=== PATIENT | female | born 1955 | race American Indian/Alaskan Native ===

== ENCOUNTER 2016-06-06 14:17 | Outpatient (CLI) | payer MEDICARE ==
--- NOTE | 2016-06-06 15:24 | Cat Scan Report ---
CT CHEST WITHOUT CONTRAST History: Pulmonary nodule Technique: Helical CT without IV contrast. Sagittal and coronal reformatted images. Findings: Compared to 05/03/15. Findings: Sternotomy wires are noted consistent with previous thoracic surgery, correlate with history. Heart size and pulmonary vascularity remain normal. The mediastinal vessels are unchanged. 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 No pericardial effusion. Calcified lymph nodes in the bilateral hilar chains and subcarinal chain are unchanged. Scattered calcified granulomas in both lungs are unchanged. No suspicious noncalcified pulmonary nodule. No underlying parenchymal lung disease. No pleural effusion or pneumothorax. The bony thorax is intact. Impression: Stable findings since 05/03/15. Findings consistent with chronic granulomatous disease. No suspicious pulmonary nodule.
== END 2016-06-06 14:18 | disposition home or self-care (01) ==
LOC: CT 14:17
PROVIDERS: ATTEND Specialist
DX: R91.1 Solitary pulmonary nodule (principal); J84.10 Pulmonary fibrosis, unspecified; Z98.890 Other specified postprocedural states
CPT/HCPCS: 71250

== ENCOUNTER 2016-06-12 16:27 | Emergency (ER) | payer MEDICARE ==
--- NOTE | 2016-06-12 17:39 | Emergency Department Report ---
Chief Complaint: Extremity Injury, Lower Stated Complaint: LEFT LEG PAIN Time Seen by Provider: 06/12/16 17:36 - HPI History of Present Illness: 61 y/o female complain of left leg pain and right foot pain .pt state that she was told she had lupus and rheumatoid arthritis.pt state she has have heavy feeling from head to waist .pt denies any chest pain at present . - ROS Review of Systems: per HPI - Exam Vital Signs: Vital Signs 06/12/16 17:13 Temperature 98.6 F Pulse Rate 106 H Respiratory 20 Rate Blood Pressure 136/72 O2 Sat by Pulse 99 Oximetry Physical Exam: GENERAL: The patient is well-developed and well-nourished. Patient is in NAD. HENT: Normocephalic. Atraumatic. Patient has moist mucous membranes. Throat: No erythema, swelling or exudates. EYES: Extraocular motions are intact, PERRL NECK: Supple. No meningitic signs are noted. There is no adenopathy noted. CHEST/LUNGS: Clear to auscultation bilaterally. No wheezing, rales or rhonchi noted. There is no respiratory distress noted. HEART/CARDIOVASCULAR: Regular rate and rhythm. Normal S1 S2. No murmurs, rubs , clicks, or gallops. ABDOMEN: Abdomen is soft, nontender.. Bowel sounds normoactive. There is no abdominal distention. Negative rebound tenderness. : Deferred. SKIN: There is no rash. There is no edema. There is no diaphoresis. NEURO: The patient is A&Ox3. The patient has no focal neurologic deficits. MUSCULOSKELETAL: There is no tenderness or deformity. There is no limitation range of motion. PSYCH: Pt has appropriate mood and affect. MSE screening note: Focused history and physical exam performed. Due to findings the following was ordered: ED Disposition for MSE Condition: Stable
[2016-06-12 18:41] LABS: Basophils % (Auto) 0.5 % (0.0-1.8); Hematocrit 40.7 % (30.3-42.9); Hemoglobin 12.9 gm/dl (10.1-14.3); Mean Corpuscular HGB Conc 32 % (30-34); Mean Corpuscular Hemoglobin 27 pg (28-32); Mean Corpuscular Volume 85 fl (79-97); Platelet Count 379 K/mm3 (140-440); Red Cell Distribution Width 15.3 % (13.2-15.2); White Blood Count 9.1 K/mm3 (4.5-11.0)
[2016-06-12 18:51] LABS: INR 1.09 (0.87-1.13)
[2016-06-12 18:52] LABS: Partial Thromboplastin Time 20.3 Sec. (24.2-36.6)
[2016-06-12 19:11] LABS: Anion Gap 22 mmol/L; BUN/Creatinine Ratio 15.71; Blood Urea Nitrogen 11 mg/dL (7-17); Calcium 9.9 mg/dL (8.4-10.2); Carbon Dioxide 28 mmol/L (22-30); Chloride 94.6 mmol/L (98-107); Glucose 143 mg/dL (65-100); Potassium 3.4 mmol/L (3.6-5.0); Sodium 141 mmol/L (137-145)
[2016-06-13 10:23] LABS: Alanine Aminotransferase 31 units/L (7-56); Albumin 3.7 g/dL (3.9-5); Albumin/Globulin Ratio 0.9 %; Alkaline Phosphatase 60 units/L (35-129); Bilirubin,Total 0.3 mg/dL (0.1-1.2); Total Protein 7.9 g/dL (6.3-8.2)
[2016-06-13 10:28] LABS: Bilirubin,Direct < 0.2 mg/dL (0-0.2)
--- NOTE | 2016-06-13 10:41 | Emergency Department Report ---
HPI - General Chief Complaint: Extremity Injury, Lower Time Seen by Provider: 06/13/16 09:33 - HPI HPI: Room 24 The patient is a 61-year-old female presenting with a chief complaint of "I think I have a blood clot in my left leg." The patient states last night she felt pain in her left lower extremity thought it was a blood clot. The patient states she felt a lump left leg but it has since resolved. The patient states yesterday she noticed swelling in the right foot. The patient also states "my body has so much inflammation" since February 2016. 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 - Surgical History Past Surgical History?: Yes Hx Open Heart Surgery: Yes - Family History Family history: no significant - Social History Smoking Status: Never Smoker Substance Use Type: None - Medications Home Medications: Home Medications Medication Instructions Recorded Confirmed Last Taken Type Aspirin [Baby Aspirin] 81 mg PO QDAY 03/26/13 06/13/16 06/12/16 History Latanoprost [Xalatan 0.005% eye 1 drop OU QPM 03/26/13 06/13/16 06/12/16 History drops] Simvastatin [Zocor] 20 mg PO QHS 03/26/13 06/13/16 06/12/16 History clonazePAM [Clonazepam] 2 mg PO BID PRN 03/26/13 06/13/16 06/12/16 History FLUoxetine HCL [FLUoxetine] 40 mg PO DAILY 11/14/14 06/13/16 06/12/16 History amLODIPine [Norvasc] 10 mg PO DAILY 11/14/14 06/13/16 06/12/16 History Ascorbic Acid [Vitamin C] 500 mg PO QDAY 06/13/16 06/13/16 06/12/16 History Brimonidine 0.15% [Alphagan P 1 drops OP Q12H 06/13/16 06/13/16 06/12/16 History 0.15%] Cyanocobalamin (Vitamin B-12) 2,500 mcg SL DAILY 06/13/16 06/13/16 06/12/16 History [Vitamin B-12] Hydrochlorothiazide [HCTZ] 25 mg PO QDAY 06/13/16 06/13/16 06/12/16 History [place]-3 Fatty Acids/Fish Oil [Fish 1,000 mg PO QDAY 06/13/16 06/13/16 06/12/16 History Oil] predniSONE [Deltasone] 5 mg PO QDAY 06/13/16 06/13/16 06/12/16 History sulfaSALAzine [Azulfidine] 500 mg PO BID 06/13/16 06/13/16 06/12/16 History traMADol [Ultram] 50 mg PO Q6HR PRN #14 tablet 06/13/16 Unknown Rx ED Review of Systems ROS: Stated complaint: LEFT LEG PAIN Other details as noted in HPI Comment: All other systems reviewed and negative Constitutional: denies: chills, fever Eyes: denies: eye pain, eye discharge, vision change ENT: denies: ear pain, throat pain Respiratory: denies: cough, shortness of breath, wheezing Cardiovascular: denies: chest pain, palpitations Endocrine: no symptoms reported Gastrointestinal: denies: abdominal pain, nausea, diarrhea Genitourinary: denies: urgency, dysuria, discharge Musculoskeletal: myalgia Skin: denies: rash, lesions Neurological: denies: headache, weakness, paresthesias Psychiatric: denies: anxiety, depression Hematological/Lymphatic: denies: easy bleeding, easy bruising Physical Exam - Physical Exam Vital Signs: Vital Signs 06/12/16 06/13/16 06/13/16 17:13 03:11 07:51 Temperature 98.6 F 98.3 F 98.9 F Pulse Rate 106 H 111 H 113 H Respiratory 20 18 18 Rate Blood Pressure 136/72 144/90 152/87 Blood Pressure [Right] O2 Sat by Pulse 99 95 Oximetry 06/13/16 08:45 Temperature Pulse Rate 110 H Respiratory 12 Rate Blood Pressure Blood Pressure 122/70 [Right] O2 Sat by Pulse 97 Oximetry Physical Exam: GENERAL: The patient is well-developed well-nourished obese female lying on stretcher not appearing to be in acute distress. [] HEENT: Normocephalic. Atraumatic. Extraocular motions are intact. Patient has moist mucous membranes. NECK: Supple. CHEST/LUNGS: Clear to auscultation. There is no respiratory distress noted. HEART/CARDIOVASCULAR: Regular. There is no gallop rub or murmur. ABDOMEN: Abdomen is soft, nontender. Patient has normal bowel sounds. There is no abdominal distention. SKIN: There is no rash. There is trace bilateral lower extremity edema right greater than left. There is no diaphoresis. NEURO: The patient is awake, alert, and oriented. The patient is cooperative. The patient has normal speech MUSCULOSKELETAL: There is no evidence of acute injury. ED Course Vital Signs 06/12/16 06/13/16 06/13/16 17:13 03:11 07:51 Temperature 98.6 F 98.3 F 98.9 F Pulse Rate 106 H 111 H 113 H Respiratory 20 18 18 Rate Blood Pressure 136/72 144/90 152/87 Blood Pressure [Right] O2 Sat by Pulse 99 95 Oximetry 06/13/16 08:45 Temperature Pulse Rate 110 H Respiratory 12 Rate Blood Pressure Blood Pressure 122/70 [Right] O2 Sat by Pulse 97 Oximetry ED Medical Decision Making - Lab Data Result diagrams: 06/12/16 18:33 06/12/16 18:33 Laboratory Tests 06/12/16 06/12/16 06/12/16 18:33 18:33 18:33 WBC 9.1 RBC 4.80 Hgb 12.9 Hct 40.7 MCV 85 MCH 27 L MCHC 32 RDW 15.3 H Plt Count 379 Lymph % (Auto) 16.6 Mineral % (Auto) 7.4 H Eos % (Auto) 0.0 Baso % (Auto) 0.5 Lymph # 1.5 Mineral # 0.7 Eos # 0.0 Baso # 0.0 Seg Neutrophils % 75.5 H Seg Neutrophils # 6.9 PT 14.0 INR 1.09 APTT 20.3 L Sodium 141 Potassium 3.4 L Chloride 94.6 L Carbon Dioxide 28 Anion Gap 22 BUN 11 Creatinine 0.7 Estimated GFR > 60 BUN/Creatinine Ratio 15.71 Glucose 143 H Calcium 9.9 Total Bilirubin Direct Bilirubin AST ALT Alkaline Phosphatase NT-Pro-B Natriuret Pep 47.65 Total Protein Albumin Albumin/Globulin Ratio 06/12/16 18:33 WBC RBC Hgb Hct MCV MCH MCHC RDW Plt Count Lymph % (Auto) Mineral % (Auto) Eos % (Auto) Baso % (Auto) Lymph # Mineral # Eos # Baso # Seg Neutrophils % Seg Neutrophils # PT INR APTT Sodium Potassium Chloride Carbon Dioxide Anion Gap BUN Creatinine Estimated GFR BUN/Creatinine Ratio Glucose Calcium Total Bilirubin 0.3 Direct Bilirubin < 0.2 AST 33 ALT 31 Alkaline Phosphatase 60 NT-Pro-B Natriuret Pep Total Protein 7.9 Albumin 3.7 L Albumin/Globulin Ratio 0.9 - Radiology Data Radiology results: report reviewed (bilateral lower extremity Dopplers), image reviewed (bilateral lower extremity Dopplers) Bilateral lower extremity Dopplers (read by technologists)-no evidence of DVT/ SVT in visualized segments - Differential Diagnosis DVT, CHF, peripheral edema Critical care attestation.: If time is entered above; I have spent that time in minutes in the direct care of this critically ill patient, excluding procedure time. ED Disposition Clinical Impression: Peripheral edema, Leg pain Disposition: DISCHARGED TO HOME OR SELFCARE Is pt being admited?: No Does the pt Need Aspirin: No Condition: Stable Instructions: Lumbar Radiculopathy (ED), Arthralgia (ED), Leg Edema (ED) Additional Instructions: Return to the emergency department immediately should you develop worsening symptoms, fever, inability to tolerate food or liquid or any other concerns. Prescriptions: traMADol [Ultram] 50 mg PO Q6HR PRN #14 tablet PRN Reason: Pain Referrals: YAHAIRA HEREDIA MD [Primary Care Provider] - 3-5 Days Time of Disposition: 10:51
[2016-06-13 11:51] VITALS: BP 118/74
== END 2016-06-13 11:41 | disposition home or self-care (01) ==
LOC: ED 16:27
DX: R60.9 Edema, unspecified (principal); M79.605 Pain in left leg; I10 Essential (primary) hypertension; M19.90 Unspecified osteoarthritis, unspecified site; E78.00 Pure hypercholesterolemia, unspecified; H40.9 Unspecified glaucoma; Z79.82 Long term (current) use of aspirin
CPT/HCPCS: 36415; 80048; 80074; 83880; 85025; 85610; 85730; 93970

== ENCOUNTER 2016-11-06 15:16 | Outpatient (CLI) | payer MEDICARE ==
--- NOTE | 2016-11-06 16:10 | Mammography Report ---
Bilateral diagnostic mammogram: Compared to 05/24/15. CAD study utilized. Sonogram left breast: History: Suspected palpable mass left breast. Findings: Predominance adipose tissue bilaterally. No mass or microcalcification. Benign axillary nodes. Benign calcifications left breast. Sonographic examination of left breast reveals no cystic or solid mass. Next Impression: Benign findings. Annual followup with mammogram recommended. BI-RADS CATEGORY: 2 = Benign ACR BI-RADS MAMMOGRAPHIC CODES: 0 = Needs additional imaging evaluation; 1 = Negative; 2 = Benign; 3 = Probably benign; 4 = Suspicious; 5 = Malignant; 6 = Known biopsy-proven malignancy COMMENT: 1. Dense breast tissue, i.e., adenosis, fibrocystic changes, etc., may obscure an underlying neoplasm. 2. Approximately 10% of cancers are not detected with mammography. 3. A negative mammography report should not delay biopsy if a clinically suspicious mass is present. COMMENT: Patient follow-up letters are generated in [employer].
== END 2016-11-06 15:17 | disposition home or self-care (01) ==
LOC: SPVWC 15:16
PROVIDERS: ATTEND Obstetrics & Gynecology Gynecology
DX: R92.2 Inconclusive mammogram (principal); C25.9 Malignant neoplasm of pancreas, unspecified; I10 Essential (primary) hypertension; E11.9 Type 2 diabetes mellitus without complications
CPT/HCPCS: 76641; G0204; 77066

== ENCOUNTER 2017-11-21 12:49 | Outpatient (CLI) | payer MEDICARE ==
--- NOTE | 2017-11-22 08:31 | Mammography Report ---
BONE DEXA:11/21/17 12:49:00 CLINICAL: Postmenopausal. No comparison. TECHNIQUE: Two site bone DEXA performed on an Hologic scanner. FINDINGS: The average BMD of the lumbar spine L1-L4 is 1.103g/cm squared with a T-score of -0.4 and a Z-score of +1.5. The average BMD of the left hip is 1.131g/cm squared with a T-score of +0.6 and a Z-score of +1.6. IMPRESSION: WHO classification: Normal with average fracture risk based on both spine and left hip measurements. RECOMMENDATION: Clinical correlation and routine screening. DEFINITIONS: BMD = Bone Mineral Density T-score = BMD related to mean peak bone mass of young adult (mean expressed in Standard Deviation) Z-score = Age matched BMD expressed in SD World Health Organization (WHO) Diagnostic Criteria Normal T-score > -1 SD Osteopenia T-score between -1 and -2.4 SD Osteoporosis T-score -2.5 SD or below NOTE: BMD is not the only risk factor for fracture. One should also consider factors such as the patient's age, risk of falling, previous osteoporotic fracture, family history of osteoporotic fractures, current smoker, and low body weight. Z-scores are not calculated if >80 years of age.
--- NOTE | 2017-11-22 08:32 | Mammography Report ---
BILATERAL DIGITAL DIAGNOSTIC MAMMOGRAM with CAD: 11/21/17 12:49:00 CLINICAL: History of a left breast lump. COMPARISON:11/06/16 FINDINGS: The breasts are almost entirely fatty.No mass, architectural distortion or suspicious calcifications. IMPRESSION: No mammographic evidence of malignancy. BI-RADS CATEGORY: 1 - - Negative RECOMMENDATION: Routine mammographic screening in one year. ACR BI-RADS MAMMOGRAPHIC CODES: 0 = Needs additional imaging evaluation; 1 = Negative; 2 = Benign; 3 = Probably benign; 4 = Suspicious; 5 = Malignant; 6 = Known biopsy-proven malignancy COMMENT: 1. Dense breast tissue, i.e., adenosis, fibrocystic changes, etc., may obscure an underlying neoplasm. 2. Approximately 10% of cancers are not detected with mammography. 3. A negative mammography report should not delay biopsy if a clinically suspicious mass is present. COMMENT: Patient follow-up letters are generated by our [employer] application.
== END 2017-11-21 12:50 | disposition home or self-care (01) ==
LOC: SPVWC 12:49
PROVIDERS: ATTEND Obstetrics & Gynecology Gynecology
DX: N63.20 Unspecified lump in the left breast, unspecified quadrant (principal); M32.19 Other organ or system involvement in systemic lupus erythematosus; E78.00 Pure hypercholesterolemia, unspecified; I10 Essential (primary) hypertension; F32.9 Major depressive disorder, single episode, unspecified; F41.9 Anxiety disorder, unspecified; M19.90 Unspecified osteoarthritis, unspecified site; Z82.49 Family history of ischemic heart disease and other diseases of the circulatory system; Z83.3 Family history of diabetes mellitus; Z78.0 Asymptomatic menopausal state
CPT/HCPCS: 77066; 77080

== ENCOUNTER 2018-12-04 16:05 | Outpatient (CLI) | payer MEDICARE ==
--- NOTE | 2018-12-08 10:56 | Mammography Report ---
BILATERAL SCREENING MAMMOGRAM DIGITAL WITH CAD 3D TOMOSYNTHESIS INDICATION: Screening. COMPARISONS: 12/11/17 FINDINGS: 2D and 3D craniocaudal and mediolateral oblique views of both breasts were obtained utilizi [employer] digital acquisition. There are scattered areas of fibroglandular density. In addition to standard review, the examination was analyzed for possible abnormalities using a computer-assisted detection d evice (R2 Image [employer]). The breasts are almost entirely fatty. No suspicious findings are noted in either breast. IMPRESSION: NO EVIDENCE OF MALIGNANCY IN EITHER BREAST. SCREENING MAMMOGRAPHY IN ONE YEAR IS RECOMMENDED. BI-RADS CATEGORY 1: NEGATIVE COMMENT: Patient follow-up letters are generated by our [employer] application. Signer Name: Roberto Iqbal MD Signed: 12/08/2018 10:51 AM Workstation Name: [id number]
--- NOTE | 2018-12-08 10:56 | Mammography Report ---
BILATERAL SCREENING MAMMOGRAM DIGITAL WITH CAD 3D TOMOSYNTHESIS INDICATION: Screening. COMPARISONS: 12/11/17 FINDINGS: 2D and 3D craniocaudal and mediolateral oblique views of both breasts were obtained utilizi [employer] digital acquisition. There are scattered areas of fibroglandular density. In addition to standard review, the examination was analyzed for possible abnormalities using a computer-assisted detection d evice (R2 Image [employer]). The breasts are almost entirely fatty. No suspicious findings are noted in either breast. IMPRESSION: NO EVIDENCE OF MALIGNANCY IN EITHER BREAST. SCREENING MAMMOGRAPHY IN ONE YEAR IS RECOMMENDED. BI-RADS CATEGORY 1: NEGATIVE COMMENT: Patient follow-up letters are generated by our [employer] application. Signer Name: Roberto Iqbal MD Signed: 12/08/2018 10:51 AM Workstation Name: [id number]
== END 2018-12-04 16:06 | disposition home or self-care (01) ==
LOC: SPVWC 16:05
PROVIDERS: ATTEND Obstetrics & Gynecology
DX: Z12.31 Encounter for screening mammogram for malignant neoplasm of breast (principal); E78.00 Pure hypercholesterolemia, unspecified; I10 Essential (primary) hypertension
CPT/HCPCS: 77063; 77067